=== PATIENT | male | born 2000 | race Caucasian/White ===

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

== ENCOUNTER 2019-02-14 10:55 | Emergency (ER) | payer OTHER ==
[~2019-02-14] VITALS: Ht 172.7 cm; Wt 81.0 kg
[2019-02-14 11:00] VITALS: BP 121/72; PULSE 64; RESP 16; Ht 172.7 cm; Wt 81.0 kg
--- NOTE | 2019-02-14 12:16 | ERD ---
ER Documentation Chief Complaint Chief Complaint pt is bib family with c/o left ankle pain s/p hearing a pop during basketba HPI Patient is a 18-year-old male with past medical history of hemophilia brought in by mother presents the ER for concerns of left ankle pain which started prior to arrival. Patient playing basketball, jumped up and heard a pop while landing. Patient is unable to bear weight to the affected extremity. Patient denies any previous fractures or dislocations to the affected extremity. ROS All systems reviewed and are negative except as per history of present illness. Medications Home Meds Active Scripts Acetaminophen* (Tylophen*) 500 Mg Capsule, 1 CAP PO Q6H PRN for PAIN AND OR ELEVATED TEMP, #20 CAP Prov:DEANGELO CATALAN PA-C 02/14/19 Reported Medications [None] No Conflict Check 07/05/10 Allergies Allergies: Coded Allergies: aspirin (Verified Allergy, Unknown, 02/14/19) pt is hemophilliac PMhx/Soc History of Surgery: No Anesthesia Reaction: No Hx Neurological Disorder: No Hx Respiratory Disorders: No Hx Cardiac Disorders: No Hx Psychiatric Problems: No Hx Miscellaneous Medical Probl: Yes (Hemophilia-A) Hx Alcohol Use: No Hx Substance Use: No Hx Tobacco Use: No FmHx Family History: No diabetes Physical Exam Vitals Vital Signs Date Temp Pulse Resp B/P (MAP) Pulse Ox O2 O2 Flow FiO2 Time Delivery Rate 02/14/19 98.3 64 16 121/72 98 11:00 (88) Physical Exam GENERAL: Well-developed, well-nourished male. Appears in no acute distress. HEAD: Normocephalic, atraumatic. EYES: Pupils are equally reactive bilaterally. EOMs grossly intact. No conjunctival erythema. NECK: Supple. No meningismus. Normal range of motion of the neck. EXTREMITIES: Equal pulses bilaterally. No peripheral clubbing, cyanosis or edema. No unilateral leg swelling. NEUROLOGIC: Alert and oriented. Moving all four extremities without any difficulty. Normal speech. SKIN: Normal color. Warm and dry. No rashes or lesions. LLE: No deformity, erythema, ecchymosis. No hemarthrosis noted. Mild swelling noted throughout the ankle joint and midfoot. Tender to palpation of the midfoot, lateral and medial ankle. Nontender palpation of the proximal tib ia/fibula. Sensation intact to light touch. Neurovascularly intact. (Able to plantarflex, dorsiflex, bryan foot, invert foot, raise big toe.) 2+ DP and DT pulses. Procedures/MDM ED COURSE: The patient was stable throughout ED course. I kept the patient and/or family informed of laboratory and diagnostic imaging results throughout the ED course. DIAGNOSTIC IMAGING: Read by radiologist. Patient: STEPHANIE KNIGHT : 2000 Age: 18 Sex: M MR #: [id number] DOS: 02/14/19 1208 Ordering MD: DEANGELO CATALAN PA-C Location: E/R Room/Bed: PROCEDURE: XR Left Ankle. CLINICAL INDICATION: Pain TECHNIQUE: AP, oblique and lateral views of the left ankle were performed. COMPARISON: February 15, 2014 FINDINGS: There is normal mineralization and alignment. No acute fracture or osseous lesion is identified. The joints are normal. Soft tissue swelling is present. IMPRESSION: No acute fracture or dislocation. Soft tissue swelling. RPTAT: EE .Yohana Quinn MD, MD Date Time Electronically viewed and signed by .Yohana Quinn MD, MD on 02/14/2019 13:04 .F/ CC: DEANGELO CATALAN PA-C [id number] DIAGNOSTIC IMAGING REPORT Patient: STEPHANIE KNIGHT : 2000 Age: 18 Sex: M MR #: [id number] DOS: 02/14/19 1208 Ordering MD: DEANGELO CATALAN PA-C Location: E/R Room/Bed: PROCEDURE: XR foot CLINICAL INDICATION: Pain. TECHNIQUE: AP, oblique and lateral views of the left foot were performed. COMPARISON: Left ankle series from the same day FINDINGS: There is normal mineralization and alignment. No fracture or osseous lesion is identified. The joints are normal. Soft tissue swelling is present. There is a prominent osteophyte noted along the dorsal/anterior surface of the left talus. IMPRESSION: No acute fracture or dislocation. Soft tissue swelling. Prominent osteophyte along the dorsal surface of the left talus RPTAT: PP. .Yohana Quinn MD, MD Date Time Electronically viewed and signed by .Yohana Quinn MD, MD on 02/14/2019 13:07 .F/ CC: DEANGELO CATALAN PA-C [phone] PROCEDURES: SPLINT APPLICATION: The patient was verbally consented at bedside prior to splint application. Patient was explained the risks, benefits and alternatives to this procedure. The patient was neurovascularly intact prior to and status post application of the splint. The patient tolerated the procedure well with no complications. Splint type: CYRUS wrap Extremity: left Indication: ankle sprain MEDICAL DECISION MAKING: This is a 18-year-old male with past medical history of hemophilia presents the ER for concerns of left ankle pain which started prior to arrival. Patient states pain basketball when he jumped up and injured it.. Vital signs were reviewed. Patient was afebrile. X-ray imaging of the left ankle and foot was unremarkable. On exam, patient did not have evidence of a hemarthrosis. Patient likely has a sprain. Patient was given Cyrus wrap and crutches. Patient was advised on RICE therapy. Case was discussed with referring physician Dr. Johns and as patient stated that he requires factor VIII when he has any type of sprain injuries. Patient does not have any refills of factor VIII at his house. We did contact the [facility] pharmacy however factor VIII is not supplied at this hospital. I contacted the patient's hemophilia team at [facility]. I spoke with Nicole Fletcher, nurse transitional care manager, who states that patient has not been seen in the clinic for over 2 years. At this time they are unable to refill any prescriptions over the phone. She advised me to have patient go to the [facility] ER so he could be evaluated. She stated that she will discuss case with the patient's bargeman Dr. Clemente Fletcher. At this time, patient presentation most consistent with ankle sprain. Low suspicion for ankle dislocation, ankle fracture, tibia fracture, fibula fracture, tibial plateau fracture, Maisonneuve fracture, foot fracture, osteo myelitis, septic joint, gout, osteoarthritis, DVT, compartment syndrome. At this time, unable to rule out any tendon and ligament injuries. PRESCRIPTIONS: Tylenol DISCHARGE: At this time, patient is stable for discharge and outpatient management. RICE t herapy and ROM exercises were advised to avoid stiffness. I have instructed the patient to follow-up with his/her primary care physician in 1-2 days. I have discussed with the patient the possibility of needing to see an improvement specialist for further workup and imaging if the pain persists. I have instructed the patient to promptly return to the ER for any new or worsening symptoms including increased pain, swelling, redness, warmth or fever. The patient and/or family expressed understanding of and agreement with this plan. All questions were answered. Home care instructions were provided. Disclaimer: Inadvertent spelling and grammatical errors are likely due to EHR/dictation software use and do not reflect on the overall quality of patient care. Also, please note that the electronic time recorded on this note does not necessarily reflect the actual time of the patient encounter. Departure Diagnosis: Primary Impression: Ankle injury Encounter type: initial encounter Laterality: left Qualified Codes: S9 9.912A - Unspecified injury of left ankle, initial encounter Additional Impression: Hemophilia A Condition: Fair Patient Instructions: What Are Ankle Sprains? Referrals: SCOOTER OCAMPO MD (PCP) Additional Instructions: Go to [facility] immediately still you could be evaluated and received factor VIII. Call your primary care doctor TOMORROW for an appointment during the next 1-2 days.See the doctor sooner or return here if your condition worsens before your appointment time. DEANGELO CATALAN PA-C February 14, 2019 12:16
[2019-02-14] MEDS ORDERED: ACET500C5 PO (13:17)
== END 2019-02-14 14:00 | disposition home or self-care (01) ==
LOC: E/R 10:55
DX: S99.912A Unspecified injury of left ankle, initial encounter (principal); D66 Hereditary factor VIII deficiency; X50.1XXA Overexertion from prolonged static or awkward postures, initial encounter; Y92.310 Basketball court as the place of occurrence of the external cause
CPT/HCPCS: 73610; 73630; Z7502